=== PATIENT | female | born 2000 | race Caucasian/White ===

== ENCOUNTER 2022-09-28 04:47 | Inpatient (IN) | payer OTHER, SELFPAY ==
[2022-09-28] VITALS (53 sets, daily range): BP systolic 106–156; BP diastolic 49–96; PULSE 64–115; TEMP 36.2–37.4; O2SAT 98–100; BMI 39.0
--- NOTE | 2022-09-28 05:14 | LDADM ---
This patient, Masha Jack, was admitted to Labor/Delivery/Recovery 103 on 09/28/22 at 04:47. Plans for labor, pain management and were discussed with patient. Patient/family oriented to hospital policies and general routines including ID bracelet, bed and alarms, visiting hours, pain management, procedures, bathroom and other care routines, personal items, smoking policy, room service/diet and guest tray routines, security routines, and visiting hours. Patient/Family are encouraged to report perceived risks to care and to ask questions if they do not understand what they are told or what they should do. See OBIX for further documentation.
[2022-09-28 05:29] LABS: Basophils Percent Auto 0.3 % (0.2-1.2); Eosinophils Percent Auto 0.3 % (0-4.4); Hematocrit 33.2 % (37.0-47.0); Hemoglobin 11.2 g/dL (12.0-15.0); Immature Granulocyte Absolute 0.05 K/mm3 (0.00-0.031); Immature Granulocyte Percent A 0.5 % (0-0.5); Lymphocytes Absolute Auto 2.12 K/mm3 (0.9-3.2); Lymphocytes Percent Auto 22.8 % (18.3-44.2); Mean Corpuscular HGB Conc 33.7 g/dl (32-36); Mean Corpuscular Hemoglobin 30.4 pg (26-34); Mean Corpuscular Volume 90.2 fl (80-100); Mean Platelet Volume 10.5 fl (7.4-10.4); Monocytes Absolute Auto 0.8 K/mm3 (0.1-0.6); Monocytes Percent Auto 8.6 % (2.6-8.5); Neutrophils Absolute Auto 6.3 K/mm3 (1.3-6.7); Neutrophils Percent Auto 67.5 % (45.5-73.1); Platelet Count Result 297 k/mm3 (150-375); Red Blood Count 3.68 M/mm3 (4.2-5.4); White Blood Count 9.3 K/mm3 (4.5-10.0)
[2022-09-28] MEDS: miSOPROStol 25 MCG TABLET BY MOUTH (06:32)
--- NOTE | 2022-09-28 07:43 | WPDOBADMIT ---
Obstetrics - Admit Note Admission Note: record reviewed. No pertinent additions to the history and/or any subsequent changes in the physical findings that are not consistent with the expected course of the were found. Additions to the history and/or subsequent changes in the physical findings follow. None.
[2022-09-28 10:04] LABS: Rapid Plasma Reagin Non-Reactive (NonReactive)
[2022-09-28] MEDS: miSOPROStol 25 MCG TABLET PO ×2 (11:00→15:33)
--- NOTE | 2022-09-28 17:05 | PM.OBPNLAB ---
Pain Control Date/time seen: 09/28/22 1700 CNM to bedside at 1645 initally. Pain control: tolerating well Comments: Feeling occasional mild cramping. Pelvic Exam Dilation (cm): 3 Effacement (%): 70 station: -2 Amniotic membrane status: Intact Comments: head well applied to cervix. Contractions Monitor mode: External Contraction pattern: Irregular Contraction intensity: Mild Status status: Category l Assessment and Plan Assessment: induction ongoing Comments: CNM to bedside. Discussed IOL process and risks/benefits of continuing IOL vs discharge home (if cervix unchanged at 1930). Pt wants to do everything possible to get the baby out and not have to go home. Discussed option of amniotomy and IUPC placement. Discussed risks and benefits of procedure. Pt agreeable and desires to proceed. Amniotomy performed with return of moderate amount of clear fluid. IUPC inserted and initially returned with blood. New IUPC inserted and returned with clear fluid. Plan to start pitocin at 1930 if MVUs are not adequate. Dr. Block updated on pt status.
--- NOTE | 2022-09-28 17:10 | PM.OBPRVD ---
OB - Delivery Note Procedure Induction method: AROM and Per Misoprostol Protocol Delivery augmentation: Rupture of Membranes Delivery monitor: External FHT and Internal FHT
--- NOTE | 2022-09-28 17:10 | PM.OBDSVD ---
DS: Admitting Diagnosis Discharge Date 10/03/2022 Admitting Diagnosis 21 y.o. at 39 weeks 0 days. Teen Family Hx of [place] Syndrome Marijuana use in Hx Childhood Asthma Binge Eating Disorder Anemia DS: Discharge Diagnosis Discharge Diagnosis (1) Chorioamnionitis: Qualifiers: Fetus number: single or unspecified fetus Trimester: third trimester Qualified Code(s): O41.1230 - Chorioamnionitis, third trimester, not applicable or unspecified Code(s): O41.1290 - Chorioamnionitis, unspecified trimester, not applicable or unspecified Status: Acute (2) Status post primary low transverse section: Code(s): Z98.891 - History of uterine scar from previous surgery Status: Acute (3) Post-op pain: Code(s): G89.18 - Other acute postprocedural pain Status: Acute (4) Mother currently breast-feeding: Code(s): Z39.1 - Encounter for care and examination of lactating mother Status: Acute OB - DS: Summary Hospital Course Hospital Course: Complicated by Chorioamnionitis. OB Procedures : Ultrasound OB Procedures Intrapartum: and Other (antibiotics for chorioamnionitis) OB Procedures: : None Peripartum Data Infant Delivery Method: Section Laceration Description: None Episiotomy description: None complications: none Status at Discharge Overall status at discharge: patient is progressing back to baseline Time Spent with Patient Time attestation: Total time spent providing and/or coordinating discharge services: Exam Const: General: cooperative, no acute distress and awake Orientation/consciousness: patient oriented x3 Limitations: no limitations Resp: Effort & Inspection: normal respiratory effort and able to speak in complete sentences Auscultation: clear to auscultation bilaterally Cardio: Rate: regular rate Peripheral pulses: Peripheral pulses 2+ throughout GI: Inspection: normal to inspection Auscultation: normal bowel sounds : General: Yes bladder normal to palpation Bimanual exam- vagina & uterus: bladder normal to palpation Other: Fundus firm Skin: General skin exam: normal color Other: Incision C/D/I. Skin glue in place. Neuro: General: patient oriented x3 Cognition (Neuro): normal cognition Speech: normal speech Extrem: General: normal to inspection Psych: Appearance: grossly normal Mental Status: mental status grossly normal Speech and movement: Normal speech and movement present Affect: normal affect Attitude: cooperative Thought process: Normal thought process present DS: Data Data Completed and Pending Labs on day of discharge: Labs from last 24 hours 09/28/22 05:03 WBC 9.3 RBC 3.68 L Hgb 11.2 L Hct 33.2 L MCV 90.2 MCH 30.4 MCHC 33.7 RDW 12.0 Plt Count 297 MPV 10.5 H Immature Gran % (Auto) 0.5 Neut % (Auto) 67.5 Lymph % (Auto) 22.8 Barber % (Auto) 8.6 H Eos % (Auto) 0.3 Baso % (Auto) 0.3 Lymph # (Auto) 2.12 Barber # (Auto) 0.8 H Eos # (Auto) 0.0 Baso # (Auto) 0.0 Abs Immat Gran (auto) 0.05 H Absolute Neuts (auto) 6.3 Absolute Nucleated RBC 0.0 Nucleated RBC % 0.0 RPR Non-reactive Blood Type O Positive Antibody Screen Negative Discharge Plan Discharge Attending physician on discharge: Sol Block Discharging Clinician: Holli Acevedo Anticipated Discharge Date/Time: 10/02/22 11:45 Patient Disposition: Home, Self-Care Activity: may shower, may drive after 2 weeks and pelvic rest Diet: regular Wound Care Instructions: incision open to air Discharge Instructions: Continue taking your vitamin and any other supplements as previously directed (Examples: Iron, Vitamin D). You may take Tylenol 1000mg over the counter every 6 hours as needed for pain. Do not exceed 4000mg of Tylenol daily. You may continue using tucks pads and dermoplast spray if needed for
[2022-09-28] MEDS: LACTATED RINGERS 1,000 ML 125 ML IV CONT (19:36)
[2022-09-28] MEDS: OXYTOCIN 30 UNITS/NS 500 ML 30 UNITS/500 ML BAG IV CONT (19:37)
--- NOTE | 2022-09-28 22:23 | WPDANESEPPF ---
Anes - Initial Pre Proc Eval Procedure: Labor Epidural Date/Time: 09/28/22 21:55 Surgeon: Sol Block MD Pre Op Diagnosis: Labor Pain Pre Op Diagnosis: IOL Patient Data Age: 21 Gender: F Height: 1.6 m Weight: 100 kg Last Vital Signs Temp 37.4 C 09/28/22 17:00 Pulse 86 09/28/22 22:21 BP 127/55 L 09/28/22 22:21 Pulse Ox 99 09/28/22 22:18 O2 Del Method Room Air 09/28/22 05:11 Allergies Allergy/AdvReac Type Severity Reaction Status Date / Time No Known Allergies Allergy Verified 05/25/19 13:23 Home Medications Medication Instructions Recorded Confirmed Type aspirin 81 mg tablet 81 mg PO DAILY 09/12/22 09/28/22 History cholecalciferol (vitamin D3) 1,250 1,250 mcg PO WEEKLY 09/12/22 09/28/22 History mcg (50,000 unit) tablet prenat.vits,samantha,krz-[id number] 1 tablet PO DAILY 09/12/22 09/28/22 History Laboratory Tests 09/28/22 05:03 WBC 9.3 K/mm3 (4.5-10.0) RBC 3.68 L M/mm3 (4.2-5.4) Hgb 11.2 L g/dL (12.0-15.0) Hct 33.2 L % (37.0-47.0) MCV 90.2 fl (80-100) MCH 30.4 pg (26-34) MCHC 33.7 g/dl (32-36) RDW 12.0 % (11.5-14.5) Plt Count 297 k/mm3 (150-375) MPV 10.5 H fl (7.4-10.4) Immature Gran % (Auto) 0.5 % (0-0.5) Neut % (Auto) 67.5 % (45.5-73.1) Lymph % (Auto) 22.8 % (18.3-44.2) Bremer % (Auto) 8.6 H % (2.6-8.5) Eos % (Auto) 0.3 % (0-4.4) Baso % (Auto) 0.3 % (0.2-1.2) Lymph # (Auto) 2.12 K/mm3 (0.9-3.2) Bremer # (Auto) 0.8 H K/mm3 (0.1-0.6) Eos # (Auto) 0.0 K/mm3 (0-0.3) Baso # (Auto) 0.0 K/mm3 (0.0-0.1) Abs Immat Gran (auto) 0.05 H K/mm3 (0.00-0.031) Absolute Neuts (auto) 6.3 K/mm3 (1.3-6.7) Absolute Nucleated RBC 0.0 K/mm3 (0.0-0.012) Nucleated RBC % 0.0 % (0.0-0.2) RPR Non-reactive (NonReactive) Blood Type O Positive Antibody Screen Negative Patient hx anesthesia problems: none Family hx anesthesia problems: none Results Review: All pre-operative results and documents have been reviewed as part of the pre-operative evaluation. [facility] Past Medical History Medical History Tonsillectomy planned Family History Family History Mother Heart disease Grandparent Heart disease Grandparent Heart disease Social History Social History Smoking status: Never smoker Substance use: never Lack of Transportation: No Lack of Food: Never True Current Housing: I Have Housing Concerned About Future Housing: No Difficulty Paying Gas/Electric Bills: No Difficulty Paying for Meds: No Currently Unemployed: YES Education: Grade School Difficulty w/ Childcare or Family Care: No Spiritual care concerns: No Anes - Eval Final PreProcedure Day of Procedure 09/28/22 22:23 Patient weight: obese Heart: regular rate and rhythm Airway: Mallampati scale class II Neurological: alert and oriented ASA classification: II Emergent: no Anesthetic plan: proceed Anesthesia type and monitoring: regional epidural and standard monitoring Results Review: All pre-operative results and documents have been reviewed as part of the pre-operative evaluation. Informed Consent: The patient's anesthetic plan and its attendant risks and benefits were discussed with the patient/family/POA. Questions were solicited and answers provided to the satisfaction of the patient/family/POA.
--- NOTE | 2022-09-28 22:24 | WPDANESEPN ---
Anes - Epidural Procedure Note Date/Time: 09/28/22 22:24 Consent: I have discussed with the patient/family/POA, the placement of an epidural catheter and the use of epidural narcotic/local anesthetic for labor analgesia and/or postoperative pain management, including associated potential risks, benefits, complications and side effects. I have discussed alternative methods of labor analgesia and/or postoperative pain management. The patient/family/POA, understand(s) and wish(es) to proceed with epidural narcotic/local anesthetic for labor analgesia and/or postoperative pain management. Time-Out: A pre-procedural Time-Out was completed immediately before starting the procedure and confirmed: Patient Identification, Site, Procedure, Patient Position and the Availability of Requisite Equipment. Clinical Indications: Labor Pain Epidural Insertion Note Patient position: sitting Skin prep: chlorhexidine and sterile drape Needle: 18g Tuohy-Schliff Catheter: 20g Unstyleted Technique: Loss of resistance. Level of insertion: L3/4 Catheter skin vero (cm): 12 Length in epidural space (cm): 7 Skin anesthesia: lidocaine 1% Test dose: 1.5% Lidocaine with 1:[id number] Epi, negative for subarachnoid Inj and negative for intravascular Inj Time of test dose: 22:09 Observations: tolerated well Complications: none
[2022-09-29] VITALS (215 sets, daily range): BP systolic 88–219; BP diastolic 47–157; PULSE 58–145; RESP 14–21; TEMP 36.2–39.3; O2SAT 93–100
[2022-09-29] MEDS: LACTATED RINGERS 1,000 ML 125 ML IV CONT ×2 (02:57→10:03)
[2022-09-29] MEDS: ONDANSETRON INJ 4 MG/2 ML VIAL IV PUSH ×2 (02:57→09:32)
[2022-09-29] MEDS: SODIUM CHLORIDE 0.9% IV 300 ML 600 ML I-UTERINE (05:29)
--- NOTE | 2022-09-29 07:35 | PM.OBPNLAB ---
Pain Control Date/time seen: 09/29/22 0655 Pain control: tolerating well and epidural Comments: Overnight CNM was not notified with any concerns. CNM called floor at 0505. RN stated FHTs with intermittent variable decelerations. Ordered amnioinfusion at that time. Pelvic Exam Dilation (cm): 4 Effacement (%): 80 station: -2 Amniotic membrane status: Ruptured Contractions Monitor mode: Internal Contraction frequency: 2 (2-3) Contraction pattern: Regular Contraction intensity: Moderate Status status: Category ll Assessment and Plan Pitocin rate (mU/min): 3 Assessment: induction ongoing Comments: CNM to bedside. FHT tracing reviewed. Amnioinfusion not running. Ordered to be restarted at maintenance infusion. Discussed plan of care with pt. Recommend side-lying release and other position changes. Pt agreeable. Pt assisted to right side-lying release. Support provided to hip. Pt in this position for 3-4 contractions and then repositioned to left side and position repeated x 3-4 contractions. Pt then assisted to hands and knees for several minutes. Finally she was assisted to far left side with peanut ball supporting top (right leg). Recommend maintaining this position (as FHTs allow) x 20-30 minutes and then repositioning to the right followeed by sitting up. Maintain pitocin infusion as needed to achieve adequate contraction pattern. Anticipate vaginal . Pt afebrile. Dr. Block updated.
[2022-09-29] MEDS: ACETAMINOPHEN 500 MG TABLET 1000 MG PO (09:59)
[2022-09-29] MEDS: AMPICILLIN 2 GM/NS 100 ML 2 GM/100 ML BAG IVPB (10:00)
--- NOTE | 2022-09-29 10:51 | PM.IMHP ---
H&P: HPI History of Present Illness Date/Time: 09/29/22 10:51 Chief Complaint: intolerance of labor Narrative: the patient is a 21-year-old 2 para 0 aborta 1 at 39-,1/7 weeks admitted for medical induction of labor. Patient has had slow progress over 24hours. Patient had an elevated temperature with tachycardia approximately 930. Tylenol, ampicillin, and gentamicin were ordered at that time. At this time the gentamicin has not yet been given. Patient initially had good variability with no decelerations but for approximately the last 40minutes the patient's variability has decreased and the patient is having recurrent decelerations that appeared late. The tachycardia is decreasing. It was recommended to proceed with section at 10:40 a.m.. The patient voices understanding and agrees to proceed. to this point has been uncomplicated. Patient was a late transfer to our practice at 24 weeks. labs: O positive, rubella immune, RPR negative, hepatitis-B surface antigen negative, HIV negative, group B strep negative. Review of Systems Review of Systems: not repeated day of surgery; patient states no changes in status PMFSH Past Medical History Medical History (Updated 09/29/22 @ 10:58 by Sol Block MD) Asthma in earlier childhood History of eating disorder binge eating disorder Surgical History Surgical History (Updated 09/29/22 @ 10:56 by Sol Block MD) Hx of LASIK Status post tonsillectomy and adenoidectomy Family History Family History Mother Heart disease Grandparent Heart disease Grandparent Heart disease Social History Social History Smoking status: Never smoker Substance use: never Lack of Transportation: No Lack of Food: Never True Current Housing: I Have Housing Concerned About Future Housing: No Difficulty Paying Gas/Electric Bills: No Difficulty Paying for Meds: No Currently Unemployed: YES Education: Grade School Difficulty w/ Childcare or Family Care: No Spiritual care concerns: No Meds Home Medications and Allergies Home Medications Medication Instructions Recorded Confirmed Type aspirin 81 mg tablet 81 mg PO DAILY 09/12/22 09/28/22 History cholecalciferol (vitamin D3) 1,250 1,250 mcg PO WEEKLY 09/12/22 09/28/22 History mcg (50,000 unit) tablet prenat.vits,samantha,[id number]-[id number]-vmqzx 1 tablet PO DAILY 09/12/22 09/28/22 History Allergies Allergy/AdvReac Type Severity Reaction Status Date / Time No Known Allergies Allergy Verified 05/25/19 13:23 Vital Signs Vital Signs - 24 hr 09/28/22 14:52 09/28/22 17:02 09/28/22 17:00 Temperature 99.3 F Pulse Rate 84 81 Blood Pressure 141/80 H 156/96 H Pulse Oximetry 09/28/22 20:51 09/28/22 21:55 09/28/22 22:03 Temperature Pulse Rate 81 80 Blood Pressure 112/68 115/62 Pulse Oximetry 100 09/28/22 22:08 09/28/22 22:10 09/28/22 22:12 Temperature Pulse Rate 86 92 Blood Pressure 131/78 134/75 Pulse Oximetry 100 09/28/22 22:13 09/28/22 22:15 09/28/22 22:16 Temperature 97.6 F Pulse Rate 90 80 84 Blood Pressure 137/79 135/69 127/68 Pulse Oximetry 98 09/28/22 22:18 09/28/22 22:21 09/28/22 22:23 Temperature Pulse Rate 81 86 82 Blood Pressure 134/56 L 127/55 L 129/75 Pulse Oximetry 99 100 09/28/22 22:27 09/28/22 22:28 09/28/22 22:29 Temperature Pulse Rate 85 81 Blood Pressure 122/62 121/61 Pulse Oximetry 100 09/28/22 22:30 09/28/22 22:33 09/28/22 22:35 Temperature Pulse Rate 73 72 82 Blood Pressure 121/72 118/74 127/66 Pulse Oximetry 99 09/28/22 22:38 09/28/22 22:40 09/28/22 22:43 Temperature Pulse Rate 82 79 115 H Blood Pressure 130/59 L 120/63 123/49 L Pulse Oximetry 100 99 09/28/22 22:45 09/28/22 22:48 09/28/22 22:53 Temperatu
[2022-09-29] MEDS: GENTAMICIN SULFATE INJ 355 MG in DEXTROSE 5% 100 ML 100.12 MG IVPB (10:54)
[2022-09-29] MEDS: ceFAZolin 2 GM/D5W 50 ML 2 GM/50 ML BAG IVPB (11:00)
--- NOTE | 2022-09-29 11:38 | W.PM.PROC2 ---
Procedure Note - Detailed Date of Procedure 09/29/22 Pre-op Diagnosis Intrauterine at 39 weeks intolerance of labor chorioamnionitis Post-op Diagnosis Same Procedure Performed primary low-transverse section Surgeon Sol Block MD Anesthesia Epidural Findings female infant in the right occiput posterior position weighing 6lb 6oz; Apgars have not yet been determined by Pediatrics; normal-appearing tubes, ovaries, uterus Description of Procedure The patient is taken to the operating room and placed under anesthesia in the dorsal supine position with a leftward tilt. Once anesthesia was deemed adequate she was prepped and draped in the usual sterile fashion. a Pfannenstiel skin incision was then made with a scalpel and carried down to the underlying layer of fascia which was nicked in the midline with a scalpel. The incision was extended laterally using Andrews scissors. Bleeding vessels in the subcutaneous tissue are cauterized for hemostasis. The fascial edges were grasped with Ochsner was and tented and the rectus muscles dissected off using sharp and blunt dissection. The peritoneum is grasped with a Peon and entered with Metzenbaum. The incision was extended with blunt traction. Bladder blade is placed. The vesicouterine peritoneum was tented and entered with Metzenbaum scissors and extended laterally. Bladder flap was created digitally. The lower uterine segment was incised in a transverse fashion with the scalpel and extended with blunt traction. The infant's head was brought up into the incision and fully delivered while the case management assistant applied fundal pressure. The infant was fully delivered and the cord clamped and cut. The was handed to the awaiting OB nurse. The placenta is attempted to be removed with traction but the cord avulsed very easily. The placenta was removed in pieces. The uterus is cleared of all clots and debris. The uterus is exteriorized and noted to be very atonic. The Pitocin is increased and the patient was given Methergine. The massage of the uterus continued throughout the repair of the uterine incision. The uterine incision was closed using 0 Monocryl in a running locked fashion with the same suture used to imbricate. Two additional yuhfpm-bp-zuhhv sutures are required in the midline for hemostasis. The bladder flap had a bleeding area that required cauterization. The uterus had firmed during the procedure. Uterus was returned to the abdomen after irrigation and clearing of clots and debris from the gutters and cul-de-sac. The uterine incision was again inspected noted to be hemostatic. The fascia was closed using 0 Vicryl in a running fashion. Subcutaneous tissues are irrigated made hemostatic using Bovie cautery. Skin incision was closed using 4-0 Vicryl in a subcuticular fashion. Dermaflex was placed over the incisions. Sponge, needle, and instrument counts are correct per the OR staff. The patient is taken to recovery in stable condition. Estimated Blood Loss 320 Drains Yes ( Levi catheter) Packing No Pathology Yes ( placenta) Complications No immediate complications Condition Stable Disposition Floor
--- NOTE | 2022-09-29 11:44 | PM.OBDSVD ---
DS: Admitting Diagnosis Discharge Date 10/03/22 Admitting Diagnosis intrauterine at 39 weeks for medical induction of labor DS: Discharge Diagnosis Discharge Diagnosis (1) 39 weeks gestation of : Code(s): Z3A.39 - 39 weeks gestation of Status: Acute (2) intolerance to labor, delivered, current hospitalization: Code(s): O77.9 - Labor and delivery complicated by stress, unspecified Status: Acute (3) Chorioamnionitis: Code(s): O41.1290 - Chorioamnionitis, unspecified trimester, not applicable or unspecified Status: Acute (4) Status post primary low transverse section: Code(s): Z98.891 - History of uterine scar from previous surgery Status: Acute OB - DS: Summary Hospital Course Hospital Course: Complicated by Chorioamnionitis. OB Procedures : Ultrasound OB Procedures Intrapartum: low cervical, transverse OB Procedures: : None Peripartum Data Infant Delivery Method: Section Procedures: Procedures Operation Date: 09/29/22 11:00 <No data on this case meets the specified criteria> complications: none Status at Discharge Functional status at discharge: independent ambulation Overall status at discharge: patient is progressing back to baseline Time Spent with Patient Time attestation: Total time spent providing and/or coordinating discharge services: Discharge Plan Discharge Attending physician on discharge: Sol Block Consulting providers: Holli Acevedo; Mulugeta Hand; Chana Barlow Discharging Clinician: Holli Acevedo Anticipated Discharge Date/Time: 10/02/22 11:45 Patient Disposition: Home, Self-Care Activity: may shower, may drive after 2 weeks and pelvic rest Diet: regular Wound Care Instructions: incision open to air Discharge Instructions: Education: Mom and Baby Guide Given to: Mother Follow-Up: Call your delivering provider's office for an appointment to be seen in: 1 Week Mom and baby [facility] for the follow-up appointment. Appointment Date/Time: October 05, 2022 at 9:00 am What to expect at your follow-up visit: Blood Pressure Check Physical Assessment Call [phone] if you are unable to keep your appointment time. BREAST CARE: * Wear a snug supportive bra. * For engorgement discomfort: Breast Feeding: * Apply warm moist washcloths * Express milk as needed to relieve engorgement * Wear loose clothing Bottle Feeding: * May apply ice packs * For sore nipples: * Identify correct latch-on * Apply warm moist washcloths before and after nursing * Air dry nipples after nursing * May apply Lansinoh cream to nipples ABDOMINAL INCISION: (if applicable) * Allow incision to air dry * Do NOT use lotions for powders on your incision * When showering, allow soap and water to run over the incision, but do not wash incision EPISIOTOMY/PERINEAL CARE: * Until bleeding stops, use your jose bottle after urinating * Change your pad frequently throughout the day * You may take sitz baths several times a day (fill your bathtub with warm water and soak for 20 minutes.) Do NOT bathe in the water * No tub baths until seen by your physician - You may shower ACTIVITY: * Rest as much as possible. * Do not exercise or lift anything heavier than your baby (such as laundry or other children.) * Avoid stairs or driving as much as possible. * Do not put anything into the vagina. No douching, tampons, or sexual activity until seen by physician. NOTIFY PHYSICIAN IF YOU HAVE ANY QUESTIONS OR IF ANY OF THE FOLLOWING SYMPTOMS OCCUR: * If your episiotomy or incision becomes red, swollen, or more painful than what you have experienced in the hospital. * If your vaginal bleeding becomes foul smelling. * If your vaginal bleeding becomes mo
[2022-09-29] MEDS: MORPHINE SULFATE INJ (*CRX) 10 MG/ML AMP 3 MG IV PUSH (13:52)
--- NOTE | 2022-09-29 14:02 | OBPPTRN ---
Patient transferred to post room # 287 via stretcher accompanied by family. Support person present. Oriented to unit, room, information board, rooming in, admission packet and security measures. PT introductions made and plan of care discussed per post op c section, pain management, breast /bottle feeding, daily care activities and infant in level 2 nursery. PT and fob both recipients of such instructions and no barriers to learning identified at this time. PT received such instructions per one to one discussion , mom baby care guide and demonstrations this shift. Patient verbalizes understanding.
[2022-09-29] MEDS: LANOLIN (LANSINOH) 7.5 GM CREAM 1 APPLIC TOPICAL (15:15)
[2022-09-29] MEDS: KETOROLAC 30 MG/ML VIAL (*BKC) IV PUSH (15:17)
[2022-09-29] MEDS: HYDROcodone/acetaminophen (*CRX) 10-325 MG TABLET 1 TAB PO (15:18)
[2022-09-29] MEDS: SIMETHICONE 80 MG TAB.CHEW PO ×2 (15:19→18:17)
[2022-09-29] MEDS: HYDROcodone/acetaminophen (*CRX) 5-325 MG TABLET 1 TAB PO ×2 (18:17→20:03)
[2022-09-29] MEDS: DOCUSATE SODIUM 100 MG CAPSULE PO (18:17)
[2022-09-30] MEDS: IBUPROFEN 600 MG TABLET PO ×4 (00:35→20:25)
[2022-09-30] MEDS: HYDROcodone/acetaminophen (*CRX) 10-325 MG TABLET 1 TAB PO ×2 (00:35→20:29)
[2022-09-30 03:14] VITALS: BP 107/55; PULSE 98; RESP 16; TEMP 36.1
[2022-09-30] MEDS: HYDROcodone/acetaminophen (*CRX) 5-325 MG TABLET 1 TAB PO ×5 (03:16→17:19)
[2022-09-30 05:45] LABS: Basophils Percent Auto 0.2 % (0.2-1.2); Eosinophils Percent Auto 0.1 % (0-4.4); Hematocrit 33.7 % (37.0-47.0); Hemoglobin 11.1 g/dL (12.0-15.0); Immature Granulocyte Absolute 0.15 K/mm3 (0.00-0.031); Immature Granulocyte Percent A 0.7 % (0-0.5); Lymphocytes Absolute Auto 1.02 K/mm3 (0.9-3.2); Lymphocytes Percent Auto 4.8 % (18.3-44.2); Mean Corpuscular HGB Conc 32.9 g/dl (32-36); Mean Corpuscular Hemoglobin 30.2 pg (26-34); Mean Corpuscular Volume 91.8 fl (80-100); Mean Platelet Volume 10.6 fl (7.4-10.4); Monocytes Absolute Auto 0.7 K/mm3 (0.1-0.6); Monocytes Percent Auto 3.5 % (2.6-8.5); Neutrophils Absolute Auto 19.1 K/mm3 (1.3-6.7); Neutrophils Percent Auto 90.7 % (45.5-73.1); Platelet Count Result 253 k/mm3 (150-375); Red Blood Count 3.67 M/mm3 (4.2-5.4); Red Cell Distribution Width 12.1 % (11.5-14.5); White Blood Count 21.1 K/mm3 (4.5-10.0)
[2022-09-30 08:05] VITALS: BP 131/73; PULSE 90; RESP 16; TEMP 36.9; O2SAT 98
[2022-09-30] MEDS: MULTIVIT/MIN/PREN/FOL AC/IRON TABLET 1 TAB PO (10:39)
[2022-09-30] MEDS: DOCUSATE SODIUM 100 MG CAPSULE PO ×2 (10:39→17:19)
[2022-09-30] MEDS: SIMETHICONE 80 MG TAB.CHEW PO ×4 (10:39→20:28)
--- NOTE | 2022-09-30 13:45 | PC.NURSE ---
PT introductions made and plan of care discussed per post op c section, pain management, breast /bottle feeding, daily care activities. PT and fob both recipients of such instructions and no barriers to learning identified at this time. PT received such instructions per one to one discussion , mom baby care guide and demonstrations this shift. Patient verbalizes understanding.
--- NOTE | 2022-09-30 14:34 | WPDANLDNPN2 ---
Anes-Prog Note L&D-Neuraxial Date/Time: 09/30/22 14:34 Neuraxial medications: epidural PF morphine Opiod-related complaints: none Patient feedback: Patient satisfied with post-operative pain management.
--- NOTE | 2022-09-30 14:35 | WPDANESPN ---
Anes - Prog Note Post-Op Date/Time: 09/30/22 14:35 Cardiovascular status: normal Respiratory status: normal Airway patency: baseline Mental status: baseline Post-Op hydration status: normal Vital Signs: Last Vital Signs Temp 36.9 C 09/30/22 08:05 Pulse 90 09/30/22 08:05 Resp 16 09/30/22 08:05 BP 131/73 09/30/22 08:05 Pulse Ox 98 09/30/22 08:05 O2 Del Method Room Air 09/30/22 07:30 Pain Score (VAS): 6 I/O: Intake & Output 09/29/22 09/30/22 09/30/22 23:59 07:59 15:59 Intake Total 1500 Output Total 500 600 Balance 1000 -600 Laboratory Tests 09/30/22 04:28 09/30/22 04:28 WBC 21.1 H RBC 3.67 L Hgb 11.1 L Hct 33.7 L MCV 91.8 MCH 30.2 MCHC 32.9 RDW 12.1 Plt Count 253 MPV 10.6 H Immature Gran % (Auto) 0.7 H Neut % (Auto) 90.7 H Lymph % (Auto) 4.8 L [place] % (Auto) 3.5 Eos % (Auto) 0.1 Baso % (Auto) 0.2 Lymph # (Auto) 1.02 [place] # (Auto) 0.7 H Eos # (Auto) 0.0 Baso # (Auto) 0.0 Abs Immat Gran (auto) 0.15 H Absolute Neuts (auto) 19.1 H Absolute Nucleated RBC 0.0 Nucleated RBC % 0.0 Post-procedural complaints: none Patient Feedback: Patient satisfied with anesthetic care.
[2022-09-30 20:00] VITALS: BP 133/77; PULSE 120; RESP 18; TEMP 37.3; O2SAT 100
--- NOTE | 2022-09-30 20:11 | PM.OBPNLAB ---
Pain Control Date/time seen: LATE ENTRY for 09/29/22 at 0950 Comments: CNM reviewed tracing from the office and called RN. Pt temp 102F. Due to this and maternal/ tachycardia, chorioamnionitis diagnosed. Antibiotics and tylenol ordered. Asked RN to reposition pt. Will frequently reassess tracing. Dr. Block updated on pt status. Pelvic Exam Dilation (cm): 4 Effacement (%): 80 station: -2 Amniotic membrane status: Ruptured Contractions Monitor mode: Internal Contraction frequency: 2 (2-3) Contraction pattern: Regular Contraction intensity: Moderate Status status: Category ll
[2022-09-30] MEDS: POLYSACCHARIDE IRON COMPLEX 150 MG CAPSULE PO (20:25)
[2022-09-30 22:00] VITALS: PULSE 100
[2022-10-01 00:05] VITALS: BP 137/83; PULSE 115; RESP 16; TEMP 36.8; O2SAT 98
[2022-10-01] MEDS: HYDROcodone/acetaminophen (*CRX) 10-325 MG TABLET 1 TAB PO (00:33)
[2022-10-01] MEDS: HYDROcodone/acetaminophen (*CRX) 5-325 MG TABLET 1 TAB PO ×4 (05:24→22:01)
--- NOTE | 2022-10-01 07:20 | PM.OBPNVD ---
OB - PN: Subj Subjective Date/time seen: 10/01/22 07:20 Interval history: She has adequate pain control, has ambulated without problems, tolerating regular diet, positive flatus. No leg pain. Lochia light. OB - PN: Obj Data Labs 09/30/22 04:28 OB - PN A/P Assessment and Plan (1) Status post primary low transverse section: Code(s): Z98.891 - History of uterine scar from previous surgery Status: Acute Assessment and Plan: POD 2. Routine post op care. Time Spent With Patient Time: Total time spent is greater than 50% in coordination of care (as documented) at patient's floor/unit and/or counseling patient: Exam Const: General: comfortable and no acute distress Eyes: General: appearance normal, both eyes and all related structures Resp: Effort & Inspection: normal respiratory effort GI: Inspection: normal to inspection Other: incision intact no drainage or erythema Extrem: General: normal to inspection and no calf tenderness
[2022-10-01 08:00] VITALS: BP 136/84; PULSE 98; RESP 18; TEMP 37.3; O2SAT 98
[2022-10-01] MEDS: IBUPROFEN 600 MG TABLET PO ×3 (09:05→22:01)
[2022-10-01] MEDS: SIMETHICONE 80 MG TAB.CHEW PO ×3 (09:06→22:04)
[2022-10-01] MEDS: DOCUSATE SODIUM 100 MG CAPSULE PO ×2 (09:06→22:00)
[2022-10-01] MEDS: MULTIVIT/MIN/PREN/FOL AC/IRON TABLET 1 TAB PO (09:06)
[2022-10-01 18:30] VITALS: BP 123/80; PULSE 94; RESP 16; TEMP 36.3
[2022-10-02] MEDS: HYDROcodone/acetaminophen (*CRX) 5-325 MG TABLET 1 TAB PO ×4 (01:49→19:32)
[2022-10-02] MEDS: SIMETHICONE 80 MG TAB.CHEW PO ×2 (06:52→19:31)
[2022-10-02] MEDS: MULTIVIT/MIN/PREN/FOL AC/IRON TABLET 1 TAB PO (06:52)
[2022-10-02] MEDS: DOCUSATE SODIUM 100 MG CAPSULE PO ×2 (06:52→17:09)
[2022-10-02] MEDS: IBUPROFEN 600 MG TABLET PO ×3 (06:53→19:31)
[2022-10-02 07:07] VITALS: BP 124/86; PULSE 75; RESP 16; TEMP 36.4; O2SAT 100
--- NOTE | 2022-10-02 10:50 | PM.OBPNVD ---
OB - PN: Subj Subjective Date/time seen: 10/02/22 10:50 Interval history: She has adequate pain control, has ambulated without problems, tolerating regular diet, positive flatus. No leg pain. Lochia light. Baby doing well on antibiotics. OB - PN: Obj Data Labs 09/30/22 04:28 OB - PN A/P Assessment and Plan (1) Status post primary low transverse section: Code(s): Z98.891 - History of uterine scar from previous surgery Status: Acute Assessment and Plan: Doing well. Routine post op care. Time Spent With Patient Time: Total time spent is greater than 50% in coordination of care (as documented) at patient's floor/unit and/or counseling patient: Exam Const: General: comfortable and no acute distress Eyes: General: appearance normal, both eyes and all related structures Resp: Effort & Inspection: normal respiratory effort GI: Inspection: normal to inspection Other: incision intact no drainage or erythema Extrem: General: normal to inspection and no calf tenderness Psych: Mental Status: mental status grossly normal
[2022-10-02 19:47] VITALS: BP 153/89; PULSE 84; RESP 18; TEMP 36.6; O2SAT 100
[2022-10-03] MEDS: IBUPROFEN 600 MG TABLET PO ×3 (01:26→17:25)
[2022-10-03] MEDS: SIMETHICONE 80 MG TAB.CHEW PO ×4 (01:26→17:25)
[2022-10-03] MEDS: HYDROcodone/acetaminophen (*CRX) 5-325 MG TABLET 1 TAB PO ×4 (01:26→17:25)
[2022-10-03] MEDS: DOCUSATE SODIUM 100 MG CAPSULE PO ×2 (07:20→17:25)
[2022-10-03] MEDS: MULTIVIT/MIN/PREN/FOL AC/IRON TABLET 1 TAB PO (07:20)
--- NOTE | 2022-10-03 07:49 | PM.OBPNVD ---
OB - PN: Subj Subjective Date/time seen: 10/03/22 07:49 Interval history: Ambulating in room with great improvement. Passing urine and flatus without issues. Tolerating PO food and fluid. Denies heavy bleeding or passing any large clots. Patient comments: pain well controlled [place] baby status: doing well [place] feeding status: pumping and bottle feeding OB - PN: Obj Data Labs 09/30/22 04:28 OB - PN A/P Plan day: 4 Plan: discharge home and follow up 6 weeks Time Spent With Patient Time: Total time spent is greater than 50% in coordination of care (as documented) at patient's floor/unit and/or counseling patient: Review of Systems Review of Systems: All systems reviewed & are unremarkable except as noted in HPI and below Exam Const: General: cooperative, no acute distress and awake Orientation/consciousness: patient oriented x3 Limitations: no limitations Resp: Effort & Inspection: normal respiratory effort and able to speak in complete sentences Auscultation: clear to auscultation bilaterally Cardio: Rate: regular rate Peripheral pulses: Peripheral pulses 2+ throughout GI: Inspection: normal to inspection Auscultation: normal bowel sounds : General: Yes bladder normal to palpation Bimanual exam- vagina & uterus: bladder normal to palpation Other: Fundus firm Skin: General skin exam: normal color Other: Incision C/D/I. Skin glue in place. Neuro: General: patient oriented x3 Cognition (Neuro): normal cognition Speech: normal speech Extrem: General: normal to inspection Psych: Appearance: grossly normal Mental Status: mental status grossly normal Speech and movement: Normal speech and movement present Affect: normal affect Attitude: cooperative Thought process: Normal thought process present
[2022-10-03 08:20] VITALS: BP 124/83; PULSE 74; RESP 18; TEMP 36.9; O2SAT 100
--- NOTE | 2022-10-03 12:22 | PC.NURSE ---
[id number] Introductions were made, then consulted with patient to assess needs related to . Mother led the conversation with her?plans to feed?her infant and the?experience so far. Resources provided for inpatient and outpatient services with the feeding sheet, mom/baby guide and name written on the white board. Mother was encouraged to practice consistency with pumping to protect her milk supply and to call for assistance if she would like to practice . Mother voiced understanding of information and will call if there is a request for assistance. Reported to the primary RN.
== END 2022-10-03 18:25 | disposition home or self-care (01) | DRG 540 ==
LOC: ANHLDR 09-29 11:46 → ANHOB2 10-03 11:34 → ANHLDR 10-04 08:44 → ANHOB2 10-04 08:44
PROVIDERS: Advanced Practice Midwife; Admitting Provider Obstetrics & Gynecology Gynecology; Visit Provider Obstetrics & Gynecology
PROC: 10D00Z1 Extraction of Products of Conception, Low, Open Approach (ICD-10-PCS; CPT 59514; principal; 2022-09-29 11:00)
DX: O41.1230 Chorioamnionitis, third trimester, not applicable or unspecified (principal); O36.8330 Maternal care for abnormalities of the fetal heart rate or rhythm, third trimester, not applicable or unspecified; Z37.0 Single live birth; Z3A.39 39 weeks gestation of pregnancy
CPT/HCPCS: 36415; 85025; 86592; 86850; 86900; 86901; 88307; A9270; J0131; J0290; J0456; J0690; J1580; J1885; J2210; J2270; J2274; J2405; J2590; J2795; J7030; J7120